=== PATIENT | female | born 1965 | race African-American/Black ===

== ENCOUNTER 2017-01-20 16:09 | Emergency (ER) | payer MEDICARE, MEDICAID ==
[~2017-01-20] VITALS: Ht 160 cm; Wt 74.8 kg
[~2017-01-20 16:09] MED LIST: ALBUTEROL SULF8.5 GM INH; IBUPROFEN400 MG ORAL; IBUPROFEN600 MG ORAL; NITROFURANTOIN100 M2 ORAL; RANITIDINE HCL150 MG PO; TRAMADOL HCL50 MG ORAL; ZANTAC150 MG ORAL
--- NOTE | 2017-01-20 17:07 | Emergency Room Report ---
History of Present Illness General Chief Complaint: Abdominal Pain Source: Patient Present Illness HPI 51-year-old female presents emergency department complaining of 5/10 in severity lower abdominal pain described as "bloated and gassy". She describes constipation x3 days denies nausea, vomiting, fevers, chills vision states intermittent cramping migratory pain from the right lower abdomen across to the left and has minimal relief with passing gas. Patient states her last bowel movement was 2 days ago and was very painful afterwards and reports that she had to strain. Patient states she recently took a diuretic to help relieve abdominal bloating however she states this did not help. She denies tenderness at this time. She denies blood in the stool, history of hemorrhoids or black tarry stools. Pt reports hx of GERD, and states her acid reflux has been acting up lately as well reports burning epigastric sensation only at night. Denies CP, Palpitations, LOC, AMS, dizziness, Changes in Vision, Sensation, paresthesias, or a sudden severe headache. Allergies: Coded Allergies: SULFAMETHOXAZOLE (Verified Allergy, Mild, STOMACH ACHE, 05/31/12) TRIMETHOPRIM (Verified Allergy, Mild, STOMACH ACHE, 05/31/12) Patient History Past Medical History: see triage record Past Surgical History: none Pertinent Family History: none Last Menstrual Period: 01/01/17 Now: No Reviewed Nursing Documentation: PMH: Agreed, PSxH: Agreed Nursing Documentation-PMH Past Medical History: No History, Except For Hx Gastrointestinal Problems: Yes - GERD Review of Systems All Other Systems: negative except mentioned in HPI Physical Exam Vital Signs Date Time Temp Pulse Resp B/P Pulse Ox O2 Delivery O2 Flow Rate FiO2 01/20/17 16:33 98.1 77 14 111/73 100 Room Air Sp02 EP Interpretation: reviewed, normal General Appearance: no apparent distress, alert, GCS 15, non-toxic Head: normocephalic, atraumatic Eyes: bilateral eye PERRL, bilateral eye normal inspection ENT: hearing grossly normal, normal pharynx, no angioedema, normal voice Neck: full range of motion, supple/symm/no masses Respiratory: lungs clear, normal breath sounds, speaking full sentences Cardiovascular #1: regular rate, rhythm, no edema Gastrointestinal: normal bowel sounds, non tender, soft, no guarding, no rebound Rectal: deferred Musculoskeletal: back normal, gait/station normal, normal range of motion, non- tender Neurologic: alert, oriented x3, responsive, motor strength/tone normal, sensory intact, normal gait, speech normal Psychiatric: judgement/insight normal, memory normal, mood/affect normal Skin: normal color, no rash, warm/dry, well hydrated Medical Decision Making PA Attestation Dr. Bragg is my supervising Physician whom patient management has been discussed with. Diagnostic Impression: Primary Impression: GENERALIZED ABDOMINAL PAIN Additional Impressions: Difficult bowel movements Hx of gastroesophageal reflux (GERD) ER Course 51-year-old female presents emergency department complaining of 5/10 in severity lower abdominal pain described as "bloated and gassy". She describes constipation x3 days denies nausea, vomiting, fevers, chills vision states intermittent cramping migratory pain from the right lower abdomen across to the left and has minimal relief with passing gas. Patient states her last bowel movement was 2 days ago and was very painful afterwards and reports that she had to strain. Patient states she recently took a diuretic to help relieve abdominal bloating however she states this did not help. She denies tenderness at this time. She denies blood in the stool, history of hemorrhoids or black tarry stools Ddx considered but are not limited to constipation , SBO, ileus, acute appendicitis, diverticulitis Vital signs: are WNL, pt. is afebrile H&PE are most consistent with constipation, and increased flatulence, no appreciable RLQ tenderness to suspect acute appendicitis at this time, no PE signs of acute abdomen. ORDERS: - pt. declined KUB film. ED INTERVENTIONS: - d/w pt. will treat conservatively at home, to follow up with PMD, or to return with any worsening of her current symptoms or new symptoms such as vomiting, or change in character of her abdominal pain. DISCHARGE: At this time pt. is stable for d/c to home. Will provide printed patient care instructions, and any necessary prescriptions. Care plan and follow up instructions have been discussed with the patient prior to discharge. Last Vital Signs Date Time Temp Pulse Resp B/P Pulse Ox O2 Delivery O2 Flow Rate FiO2 01/20/17 16:33 98.1 77 14 111/73 100 Room Air Disposition: HOME, SELF-CARE Condition: Stable Scripts Ranitidine Hcl* (ZANTAC*) 150 Mg Tablet 150 MG ORAL DAILY for 30 Days, #30 TAB 0 Refills Prov: Solange Holloway 01/20/17 Lactulose (LACTULOSE*) 20 Gm/30 Ml Solution 20 ML ORAL BID for 3 Days, #120 ML 0 Refills Prov: Solange Holloway 01/20/17 Docusate Sodium* (COLACE*) 100 Mg Capsule 100 MG ORAL TWICE A DAY for 20 Days, #40 CAP Prov: Solange Holloway 01/20/17 Patient Instructions: Abdominal Pain, Adult, Constipation, Adult, [id number] Additional Instructions: Take medications as directed. Follow up with PCP in 3-5 days Return sooner to ED if new symptoms occur, or current symptoms become worse. Such as vomiting, migration of pain to only the right lower quadrant, or worsening of current symptoms. - Please note that this Emergency Department Report was dictated using [employer] analyst technology software, occasionally this can lead to erroneous entry secondary to interpretation by the dictation equipment. Solange Holloway January 20, 2017 17:07
[2017-01-20] MEDS ORDERED: LACTULOSE20 GM/301 ORAL (17:09)
[2017-01-20] MEDS ORDERED: ZANTAC150 MG ORAL (17:09)
[2017-01-20] MEDS ORDERED: COLACE100 MG ORAL (17:09)
[2017-01-20 17:20] VITALS: BP 108/70
== END 2017-01-20 17:20 | disposition home or self-care (01) ==
LOC: EMR 17:20
DX: R10.30 Lower abdominal pain, unspecified (principal); K59.00 Constipation, unspecified; K21.9 Gastro-esophageal reflux disease without esophagitis; Z88.2 Allergy status to sulfonamides
CPT/HCPCS: 99284

== ENCOUNTER 2017-02-23 09:41 | Emergency (ER) | payer MEDICARE, MEDICAID ==
[~2017-02-23] VITALS: Ht 160 cm; Wt 79.4 kg
[~2017-02-23 09:41] MED LIST changes: +COLACE100 MG ORAL; +LACTULOSE20 GM/301 ORAL
[2017-02-23 09:55] VITALS: BP 127/77
[2017-02-23] MEDS ORDERED: IBUPROFEN600 MG ORAL (11:09)
[2017-02-23] MEDS ORDERED: LACTULOSE20 GM/301 ORAL (11:09)
[2017-02-23] MEDS ORDERED: Ketorolac 60mg Inj IM ONE (11:15)
[2017-02-23 11:19] VITALS: BP 127/88
--- NOTE | 2017-02-24 06:43 | Emergency Room Report ---
History of Present Illness General Chief Complaint: General Complaint Source: Patient, Medical Record Present Illness HPI 51YOF walk-in patient with 2 days of generalized body aches, sore throat, cough. Didnt get the flu vaccine this year. Denies chest pain, SOB, sick contacts, urinary complaints. Also complaints of abdominal bloating, requesting lactulose Rx ("that I was given before"). Allergies: Coded Allergies: SULFAMETHOXAZOLE (Verified Allergy, Mild, STOMACH ACHE, 05/31/12) TRIMETHOPRIM (Verified Allergy, Mild, STOMACH ACHE, 05/31/12) Patient History Past Medical History: GERD, psych hx Past Surgical History: none Pertinent Family History: none Social History: Denies: alcohol use, drug use, smoking Last Menstrual Period: 02/21/17 Now: No : 4 Para: 4 Immunizations: UTD Reviewed Nursing Documentation: PMH: Agreed, PSxH: Agreed Nursing Documentation-PMH Past Medical History: No History, Except For Hx Gastrointestinal Problems: Yes - GERD Review of Systems All Other Systems: negative except mentioned in HPI Physical Exam Vital Signs Date Time Temp Pulse Resp B/P Pulse Ox O2 Delivery O2 Flow Rate FiO2 02/23/17 09:47 98.1 79 17 127/77 100 Room Air Sp02 EP Interpretation: reviewed, normal General Appearance: normal inspection, well appearing, no apparent distress, alert, GCS 15, non-toxic Head: normocephalic, atraumatic Eyes: bilateral eye EOMI, bilateral eye PERRL ENT: normal ENT inspection, hearing grossly normal, normal voice Neck: normal inspection, full range of motion, supple, no bony tend Respiratory: normal inspection, lungs clear, normal breath sounds, no respiratory distress, no retraction, no wheezing Cardiovascular #1: regular rate, rhythm, no edema Gastrointestinal: normal inspection, normal bowel sounds, non tender, soft, no guarding, no hernia Genitourinary: no CVA tenderness Musculoskeletal: normal inspection, back normal, normal range of motion, Lashon' s Sign negative Neurologic: normal inspection, alert, oriented x3, responsive, microbiology teacher III-XII nml as tested, motor strength/tone normal, speech normal Psychiatric: normal inspection, judgement/insight normal, mood/affect normal Skin: normal inspection, normal color, no rash Lymphatic: normal inspection Medical Decision Making Diagnostic Impression: Primary Impression: Bloating Additional Impression: Viral illness ER Course 51YOF with viral symptoms. VSS. Afebrile No obvious source of bacterial infection in oropharynx, ears, lungs, skin, abdomen on exam Well appearing Advised supportive treatment Rx for Lactulose given for bloating. Abd soft, NT/ND on serial exam. Passing stool. ++bowel signs. Low suspicion for acute surgical process PMD followup DC home Understands to return for worsening symptoms - Follow up with your primary care doctor in 2-3 days Last Vital Signs Date Time Temp Pulse Resp B/P Pulse Ox O2 Delivery O2 Flow Rate FiO2 02/23/17 11:19 80 16 127/88 98 Room Air 02/23/17 09:55 98.1 Status: improved Disposition: HOME, SELF-CARE Condition: Improved Scripts Lactulose (LACTULOSE*) 20 Gm/30 Ml Solution 20 ML ORAL BID for 3 Days, #120 ML 0 Refills Prov: JIMENA LANDON M.D. 02/23/17 Ibuprofen* (MOTRIN*) 600 Mg Tablet 600 MG ORAL Q8H Y for For Pain, #30 TAB Prov: JIMENA LANDON M.D. 02/23/17 Patient Instructions: Viral Respiratory Infection, [id number], Gastritis, Adult, [id number] JIMENA LANDON M.D. Feb 24, 2017 06:43
== END 2017-02-23 11:20 | disposition home or self-care (01) ==
LOC: EMR 10:36
DX: R14.0 Abdominal distension (gaseous) (principal); B34.9 Viral infection, unspecified; K21.9 Gastro-esophageal reflux disease without esophagitis; Z88.2 Allergy status to sulfonamides; Z88.1 Allergy status to other antibiotic agents
CPT/HCPCS: 96372; 99284

== ENCOUNTER → 2017-04-24 | Emergency (ER) | payer MEDICARE, MEDICAID ==
[~2017-04-24] VITALS: Ht 160 cm; Wt 79.4 kg
[~2017-04-24] MED LIST changes: +DiphenhydrAMINE 50mg/ml Inj IVP ONE; +KEFLEX500 MG ORAL; +Ketorolac 30mg Inj IV ONE; +Metoclopramide 10mg/2ml Inj IVP ONE
[2017-04-24 16:34] VITALS: BP 134/80
[2017-04-24 17:07] LABS: APPEARANCE,URINE SLIGHTLY CLOUDY; BASOPHILS % (AUTO) 1.8 % (0.0-2.0); EOSINOPHILS % (AUTO) 4.4 % (0.0-3.0); KETONES,URINE NEGATIVE (NEGATIVE); LEUKOCYTE ESTERASE ,URINE 1+ (NEGATIVE); LYMPHOCYTES % (AUTO) 38.2 % (20.0-45.0); MEAN CORPUSCULAR HEMOGLOBIN 32.1 PG (27.0-31.0); MEAN CORPUSCULAR HGB CONC 34.8 G/DL (32.0-36.0); MEAN CORPUSCULAR VOLUME 92 FL (80-99); MONOCYTES % (AUTO) 7.1 % (1.0-10.0); NEUTROPHILS % (AUTO) 48.5 % (45.0-75.0); NITRITE,URINE NEGATIVE (NEGATIVE); PH,URINE 5 (4.5-8.0); PLATELET COUNT 378 K/UL (150-450); PROTEIN,URINE NEGATIVE (NEGATIVE); RED BLOOD COUNT 4.01 M/UL (4.20-5.40); RED CELL DISTRIBUTION WIDTH 12.2 % (11.6-14.8); UROBILINOGEN,URINE NORMAL MG/DL (0.0-1.0); WHITE BLOOD COUNT 6.5 K/UL (4.8-10.8)
[2017-04-24 17:15] LABS: BACTERIA,URINE FEW /HPF; SQUAMOUS EPITHELIAL CELL,UR MODERATE /LPF (NONE/OCC); WBC,URINE 0-2 /HPF (0 - 2)
[2017-04-24 17:30] VITALS: BP 130/75
[2017-04-24 17:41] LABS: ALANINE AMINOTRANSFERASE 12 U/L (3-33); ALBUMIN/GLOBULIN RATIO 1.3 (1.0-2.7); ANION GAP 13 (5-15); ASPARTATE AMINO TRANSFERASE 22 U/L (5-40); CALCIUM 8.7 mg/dL (8.6-10.2); CARBON DIOXIDE 23 mEQ/L (20-30); CHLORIDE 102 mEQ/L (98-107); CREATININE 0.8 mg/dL (0.5-0.9); GLOMERULAR FILTRATION RATE > 60 mL/min (>60); HEMOLYSIS 192; LIPASE 20 U/L (< 60); POTASSIUM 4.9 mEQ/L (3.4-4.9); SODIUM 138 mEQ/L (135-145); TOTAL PROTEIN 7.4 g/dL (6.6-8.7)
[2017-04-24 18:04] VITALS: BP 130/75
--- NOTE | 2017-04-24 18:51 | Emergency Room Report ---
History of Present Illness General Chief Complaint: Pain Source: Patient Present Illness HPI 51-year-old female presents to ED for evaluation. States that for the last 10 days she's been complaining of breast pain. Notes pain to the bilateral breasts. 5/10, throbbing. Patient states she's had this pain in the past whenever she is on her period. Patient states she has had mammogram in the past which are unremarkable. Is scheduled for her next mammogram seen. Denies any fevers or chills. Patient is also complaining of a headache for approximately one week. Frontal, throbbing, 8/10, nonradiating. Denies photophobia, blurry vision, nausea or vomiting. Denies chest pain or shortness of breath fracture, fevers or chills. No aggravating relieving factors. Denies any other associated symptoms Allergies: Coded Allergies: SULFAMETHOXAZOLE (Verified Allergy, Mild, STOMACH ACHE, 05/31/12) TRIMETHOPRIM (Verified Allergy, Mild, STOMACH ACHE, 05/31/12) PROPOFOL (Verified Allergy, Unknown, 04/24/17) Patient History Past Medical History: GERD Past Surgical History: none Pertinent Family History: none Social History: Denies: alcohol use, drug use, smoking Last Menstrual Period: 04/02/17 Now: No : 5 Para: 4 Immunizations: UTD Reviewed Nursing Documentation: PMH: Agreed, PSxH: Agreed Nursing Documentation-PMH Hx Gastrointestinal Problems: Yes - GERD Review of Systems All Other Systems: negative except mentioned in HPI Physical Exam Vital Signs Date Time Temp Pulse Resp B/P Pulse Ox O2 Delivery O2 Flow Rate FiO2 04/24/17 16:21 98.2 75 22 134/80 98 Room Air Sp02 EP Interpretation: reviewed, normal General Appearance: no apparent distress, alert, GCS 15, non-toxic Head: normocephalic Eyes: bilateral eye PERRL, bilateral eye normal inspection ENT: normal ENT inspection Neck: full range of motion, supple, no meningismus, supple/symm/no masses Respiratory: chest non-tender, lungs clear, normal breath sounds, speaking full sentences, other - bilateral breast pain Cardiovascular #1: regular rate, rhythm, no edema Gastrointestinal: normal inspection Rectal: deferred Genitourinary: no CVA tenderness Musculoskeletal: back normal, gait/station normal, normal range of motion, non- tender Neurologic: alert, oriented x3, responsive, motor strength/tone normal, sensory intact, speech normal Psychiatric: normal inspection Skin: normal inspection Lymphatic: normal inspection Medical Decision Making Diagnostic Impression: Primary Impression: Breast pain Additional Impressions: Urinary tract infection Qualified Codes: N39.0 - Urinary tract infection, site not specified Headache Qualified Codes: R51 - Headache ER Course Hospital Course 51-year-old female presents to ED complaining of headaches. c/o breast pain Differential diagnoses include: tension headache, migraine, dehydration Clinical course Patient placed on stretcher. After initial history and physical I ordered labs , IV fluids, Reglan, Toradol and Benadryl. Labs reviewed- electrolytes okay, no leukocytosis, hemoglobin/hematocrit stable. UA + bacteria On exam patient has some tenderness to bilateral breasts. No signs of infection or cellulitis. No fluctuance. Likely fibrocystic changes. Recommend patient followup with PMD/TIP STRETCHER Upon reassessment patient states headache has improved. Patient feels better wishes to go home. Given the lack of fever, nuchal rigidity or neurological findings my suspicion for intracranial pathology is low patient be safely discharged to home. i. I feel this is a highly complex case requiring extensive working including EKG/Rhythm strip, Xray/CT/US, Blood/urine lab work, repeat exams while in ED, and administration of strong opiates/narcotics for pain control, admission to hospital or close patient follow up. Diagnosis - headache, UTI, breast pain stable and discharged to home with Rx Motrin, Keflex. f/up with PMD. return to ED if symptoms recur/worsen. Labs Test 04/24/17 16:50 White Blood Count 6.5 K/UL (4.8-10.8) Red Blood Count 4.01 M/UL (4.20-5.40) Hemoglobin 12.9 G/DL (12.0-16.0) Hematocrit 36.9 % (37.0-47.0) Mean Corpuscular Volume 92 FL (80-99) Mean Corpuscular Hemoglobin 32.1 PG (27.0-31.0) Mean Corpuscular Hemoglobin Concent 34.8 G/DL (32.0-36.0) Red Cell Distribution Width 12.2 % (11.6-14.8) Platelet Count 378 K/UL (150-450) Mean Platelet Volume 7.0 FL (6.5-10.1) Neutrophils (%) (Auto) 48.5 % (45.0-75.0) Lymphocytes (%) (Auto) 38.2 % (20.0-45.0) Monocytes (%) (Auto) 7.1 % (1.0-10.0) Eosinophils (%) (Auto) 4.4 % (0.0-3.0) Basophils (%) (Auto) 1.8 % (0.0-2.0) Urine Color Pale yellow Urine Appearance Slightly cloudy Urine pH 5 (4.5-8.0) Urine Specific [place] 1.025 (1.005-1.035) Urine Protein Negative (NEGATIVE) Urine Glucose (UA) Negative (NEGATIVE) Urine Ketones Negative (NEGATIVE) Urine Occult Blood 3+ (NEGATIVE) Urine Nitrite Negative (NEGATIVE) Urine Bilirubin Negative (NEGATIVE) Urine Urobilinogen Normal MG/DL (0.0-1.0) Urine Leukocyte Esterase 1+ (NEGATIVE) Urine RBC 2-4 /HPF (0 - 2) Urine WBC 0-2 /HPF (0 - 2) Urine Squamous Epithelial Cells Moderate /LPF (NONE/OCC) Urine Bacteria Few /HPF (NONE) Sodium Level 138 mEQ/L (135-145) Potassium Level 4.9 mEQ/L (3.4-4.9) Chloride Level 102 mEQ/L (98-107) Carbon Dioxide Level 23 mEQ/L (20-30) Anion Gap 13 (5-15) Blood Urea Nitrogen 9 mg/dL (7-23) Creatinine 0.8 mg/dL (0.5-0.9) Estimat Glomerular Filtration Rate > 60 mL/min (>60) Glucose Level 88 mg/dL (74-106) Calcium Level 8.7 mg/dL (8.6-10.2) Total Bilirubin 0.3 mg/dL (0.0-1.2) Aspartate Amino Transf (AST/SGOT) 22 U/L (5-40) Alanine Aminotransferase (ALT/SGPT) 12 U/L (3-33) Alkaline Phosphatase 57 U/L (35-104) Total Protein 7.4 g/dL (6.6-8.7) Albumin 4.3 g/dL (3.5-5.2) Globulin 3.1 g/dL Albumin/Globulin Ratio 1.3 (1.0-2.7) Lipase 20 U/L (< 60) Last Vital Signs Date Time Temp Pulse Resp B/P Pulse Ox O2 Delivery O2 Flow Rate FiO2 04/24/17 18:04 98.2 80 18 130/75 98 Room Air Status: improved Disposition: HOME, SELF-CARE Condition: Stable Scripts Ibuprofen* (MOTRIN*) 600 Mg Tablet 600 MG ORAL Q8H Y for For Pain, #30 TAB 0 Refills Prov: CRISTIAN REA M.D. 04/24/17 Cephalexin* (KEFLEX*) 500 Mg Capsule 500 MG ORAL Q6H, #28 CAP 0 Refills Prov: CRISTIAN REA M.D. 04/24/17 Referrals: NOT CHOSEN IPA/,REFERRING (PCP) Patient Instructions: Fibrocystic Breast Changes, [id number] CRISTIAN REA M.D. Apr 24, 2017 18:51
== END | disposition home or self-care (01) ==
LOC: EMR 16:59
DX: N64.4 Mastodynia (principal); N39.0 Urinary tract infection, site not specified; K21.9 Gastro-esophageal reflux disease without esophagitis; Z88.2 Allergy status to sulfonamides; Z88.1 Allergy status to other antibiotic agents; R51 Headache
CPT/HCPCS: 36415; 80053; 81003; 83690; 85025; 96374; 96375; 99284; J1200; J1885; J2765

== ENCOUNTER 2018-05-09 16:49 | Emergency (ER) | payer OTHER, MEDICARE, MEDICAID ==
[~2018-05-09] VITALS: Ht 160 cm; Wt 81.2 kg
[~2018-05-09 16:49] MED LIST changes: -DiphenhydrAMINE 50mg/ml Inj IVP ONE; -Ketorolac 30mg Inj IV ONE; -Metoclopramide 10mg/2ml Inj IVP ONE
[2018-05-09 17:00] VITALS: BP 140/87
[2018-05-09] MEDS ORDERED: Methocarbamol 500mg tab ORAL ONE (17:15)
[2018-05-09] MEDS ORDERED: Ketorolac 30mg Inj IM ONE (17:15)
--- NOTE | 2018-05-09 17:38 | Emergency Room Report ---
History of Present Illness General Chief Complaint: Pain Source: Patient Present Illness HPI 52-year-old female patient presents to ER complaining of upper and lower extremity pain status post fall one day ago. Reports that she was walking to her car yesterday after work when she slipped on a "grease stain" and fell onto her right side. Complaining of right knee pain, right hip pain, right shoulder pain. Reports she is right-hand dominant. Also complaining of right wrist pain. Denies foods. Denies hitting her head or loss consciousness. Reports was able to walk home and handle pain yesterday, states pain worsened this morning. States has not taken any other medication for relief of symptoms. Denies abdominal pain. Denies fever, chest pain, shortness breath. denies bowel or bladder incontinence. DEnies falling on back contrary to triage report. Allergies: Coded Allergies: SULFAMETHOXAZOLE (Verified Allergy, Mild, STOMACH ACHE, 05/31/12) TRIMETHOPRIM (Verified Allergy, Mild, STOMACH ACHE, 05/31/12) PROPOFOL (Verified Allergy, Unknown, 04/24/17) Patient History Past Medical History: see triage record Last Menstrual Period: unk Now: No Reviewed Nursing Documentation: PMH: Agreed; PSxH: Agreed Nursing Documentation-PMH Hx Gastrointestinal Problems: Yes - GERD Review of Systems All Other Systems: negative except mentioned in HPI Physical Exam Vital Signs Date Time Temp Pulse Resp B/P (MAP) Pulse Ox O2 Delivery O2 Flow Rate FiO2 05/09/18 16:57 98.0 83 18 140/87 97 Room Air 98.1 Sp02 EP Interpretation: reviewed, normal General Appearance: well appearing, no apparent distress, alert, GCS 15, non- toxic Head: normocephalic, atraumatic Eyes: bilateral eye normal inspection, bilateral eye PERRL ENT: hearing grossly normal, normal pharynx, no angioedema, normal voice, uvula midline, moist mucus membranes Neck: full range of motion Respiratory: lungs clear, normal breath sounds, no rhonchi, no respiratory distress, no accessory muscle use, no wheezing, speaking full sentences Cardiovascular #1: regular rate, rhythm, no edema Cardiovascular #2: 2+ radial (R), 2+ radial (L) Musculoskeletal: back normal - no spinous process tenderness or bony depression , digits/nails normal, gait/station normal, normal range of motion, non-tender, other - no snuffbox tenderness, neurovascularly intact, no laxity with varus or valgus stress on right knee, able make a fist, no deformity; no skin tenting, negative sulcus sign, tender - right distal anterior knee Neurologic: alert, oriented x3, responsive, motor strength/tone normal, SLR negative, sensory intact Psychiatric: mood/affect normal Skin: no rash Medical Decision Making PA Attestation Dr. Emery is my supervising Physician whom patient management has been discussed with. Diagnostic Impression: Primary Impression: Fall Additional Impressions: Contusion, hip Upper extremity injury ER Course Pt. presents to the ED c/o fall and pain in knee, hip, and right upper extremity. Ddx considered but are not limited to fracture, sprain, strain, contusion, dislocation. No erythema, no warmth to touch, no fever, nontoxic appearing, low suspicion for septic joint. No leg length discrepancy, legs held in internal/external rotation, patient able ambulate, low suspicion for dislocation. no bowel or bladder incontinence, no spinous process tenderness bony depression of the spine, does not require imaging of the spine at this time. Vital signs: are WNL, pt. is afebrile Ordered imaging and pain medication. ER COURSE Provided with pain medication. An X-ray of the right wrist shows no acute fracture per the preliminary reading. An X-ray of the right shoulder shows no acute fracture per the preliminary reading. An X-ray of the right knee shows no acute fracture per the preliminary reading. CT of the pelvis shows no acute fracture per the [facility] reading. Discuss results with the patient. Provided patient with copy of results. Instructed patient to followup with PCP and discuss results of report with patient, discuss need for further treatment and referral. TRISTAN wrap and was applied to right knee and sling was applied to the right arm and was checked afterwards by me showing good alignment and support with distal neurovascular functioning intact. Patient instructed on RICE method: rest, ice, compression, elevation. Patient instructed on rest, ice and heat. Patient instructed to be WBAT Workmen's Compensation paperwork completed. Instructed to return to modified work. Followup with primary care provider. Discuss referral to ortho/pain management/ PT as needed. Discuss further imaging with MRI/CT as needed. DISCHARGE: -Rx provided for Tylenol for pain symptoms. -Rx provided for Methocarbamol. SE drowsiness, do not drink, drive, or operate heavy machinery while using. -Rx provided for lidocaine patches At this time pt. is stable for d/c to home. Patient is resting comfortably, in no acute distress, nontoxic appearing, talking without difficulty. Will provide printed patient care instructions, and any necessary prescriptions. Patient instructed to follow with primary care provider in 3 - 5 days and to request further follow-up as needed. Care plan and follow up instructions have been discussed with the patient prior to discharge. Take medications as directed. Patient questions asked and answered. Patient reports understanding and agreement to treatment plan. ER precautions given, patient instructed to return to ER immediately for any new or worsening of symptoms. - Please note that this Emergency Department Report was dictated using [id number] tank crewman technology software, occasionally this can lead to erroneous entry secondary to interpretation by the dictation equipment. Other X-Ray Diagnostic Results Other X-Ray Diagnostic Results #1: X-Ray ordered: right knee # of Views/Limited Vs Complete: 3 View Indication: Pain EP Interpretation: Yes PA Xray: Interpretation reviewed, by supervising MD, and agrees with findings. Interpretation: no dislocation, no soft tissue swelling, no fractures Impression: No acute disease PA Scribe Text Kulwant Ivy PA-C Other X-Ray Diagnostic Results #2: X-Ray ordered: right wrist # of Views/Limited Vs Complete: 3 View Indication: Pain EP Interpretation: Yes PA Xray: Interpretation reviewed, by supervising MD, and agrees with findings. Interpretation: no dislocation, no soft tissue swelling, no fractures Impression: No acute disease PA Scribe Text Kulwant Ivy PA-C Other X-Ray Diagnostic Results #3: X-Ray ordered: right shoulder # of Views/Limited Vs Complete: 3 View Indication: Pain EP Interpretation: Yes PA Xray: Interpretation reviewed, by supervising MD, and agrees with findings. Interpretation: no dislocation, no soft tissue swelling, no fractures Impression: No acute disease PA Scribe Text Kulwant Ivy PA-C CT/MRI/US Diagnostic Results CT/MRI/US Diagnostic Results : Imaging Test Ordered: CT pelvis Impression No evidence for acute fracture or dislocation. A nonspecific mixed lytic and sclerotic lesion is seen in the left femoral neck/ head measuring approximately 1.5 cm. Follow-up per final report. Degenerative changes of the lower lumbar spine. Probable fibroids in the uterus. Last Vital Signs Date Time Temp Pulse Resp B/P (MAP) Pulse Ox O2 Delivery O2 Flow Rate FiO2 05/09/18 16:57 98.0 83 18 140/87 97 Room Air 98.1 Status: improved Disposition: HOME, SELF-CARE Condition: Stable Scripts Acetaminophen* (TYLENOL EXTRA STRENGTH*) 500 Mg Tablet 500 MG ORAL Q8H PRN for Prn Headache/Temp > 101, #30 TAB 0 Refills Prov: Giorgio Ivy 05/09/18 Methocarbamol* (ROBAXIN*) 500 Mg Tablet 500 MG PO TID, #21 TAB 0 Refills Prov: Giorgio Ivy 05/09/18 Lidocaine (Lidocaine) 1 Each Adh..patch 5 % TP DAILY for 7 Days, #7 PATCH Prov: Giorgio Ivy 05/09/18 Patient Instructions: Hip Pointer, Ivrm-[id number], Knee Pain, [id number], Shoulder Pain, [id number]-[id number], Wrist Pain, Fied-[id number] Additional Instructions: Patient instructed to follow up with primary care provider and discuss further referral to orthopedics. Patient instructed on RICE method: rest, ice, compression, elevation. Patient instructed to WBAT. Take medications as directed. Patient questions asked and answered. ER precautions given, patient instructed to return to ER immediately for any new or worsening of symptoms. Giorgio Ivy May 09, 2018 17:38
[2018-05-09] MEDS ORDERED: TYLENOL EXTRA500 MG ORAL (18:19)
[2018-05-09] MEDS ORDERED: LIDOCAINE700 M1 TP (18:19)
[2018-05-09] MEDS ORDERED: ROBAXIN500 MG PO (18:19)
[2018-05-09 18:36] VITALS: BP 137/83
--- NOTE | 2018-05-10 08:35 | Diagnostic Imaging Report ---
Indication: Right hip pain, status post fall one day prior Technique: Noncontrast spiral acquisitions obtained through the pelvis. Multiplanar reconstructions generated. Total dose length product 825.53 mGycm. CTDIvol(s) 27.35 mGy. Dose reduction achieved using automated exposure control Comparison: Reference made to 02/16/[address] scan. Findings: No acute fractures. No dislocations.. Joint spaces are preserved. Reticulated sclerotic lesion in the inferomedial left femoral head is unchanged from 2014. No significant soft tissue contusion demonstrated. There are degenerative changes of the lumbosacral junction and bilateral sacroiliac joints. The pelvic viscera are unremarkable Impression: No acute bony trauma Lesion within the inferomedial left femoral head, of uncertain etiology but unchanged since 2013 and presumed benign Degenerative changes of the lumbosacral junction and bilateral sacroiliac joints This agrees with the preliminary interpretation provided overnight by [facility]. The CT scanner at [facility] is accredited by the [employer] and the scans are performed using protocols designed to limit radiation exposure to as low as reasonably achievable to attain images of sufficient resolution adequate for diagnostic evaluation.
--- NOTE | 2018-05-10 08:37 | Diagnostic Imaging Report ---
Clinical Indication:Pain, status post fall one day ago Technique: 3 views of the right wrist Comparison: None Findings: No acute fractures. No dislocations. The joint spaces are preserved. Impression: Negative
--- NOTE | 2018-05-10 08:38 | Diagnostic Imaging Report ---
Indication: Shoulder pain, one day status post fall Technique: 3 views of the right shoulder Comparison: none Findings: No acute fractures. No dislocations. Joint spaces are preserved Impression: Negative
--- NOTE | 2018-05-10 08:39 | Diagnostic Imaging Report ---
Indication: Pain, one day status post fall Technique: 3 views of the right knee Comparison: None Findings: There is a superior pole patellar traction osteophyte. No acute fractures. No dislocations. No suprapatellar effusion. There are early degenerative proliferative changes of the medial joint compartment. Impression: Mild degenerative changes. No acute bony trauma
== END 2018-05-09 18:39 | disposition home or self-care (01) ==
LOC: EMR 17:42
DX: S70.01XA Contusion of right hip, initial encounter (principal); W01.0XXA Fall on same level from slipping, tripping and stumbling without subsequent striking against object, initial encounter; Y92.89 Other specified places as the place of occurrence of the external cause; K21.0 Gastro-esophageal reflux disease with esophagitis; M79.621 Pain in right upper arm; M25.561 Pain in right knee; M25.511 Pain in right shoulder; M25.531 Pain in right wrist; Z88.2 Allergy status to sulfonamides; Z88.4 Allergy status to anesthetic agent; Z88.1 Allergy status to other antibiotic agents
CPT/HCPCS: 72192; 73030; 73110; 73562; 96372; 99284; J1885

== ENCOUNTER 2019-03-04 00:19 | Emergency (ER) | payer MEDICARE, MEDICAID ==
[~2019-03-04] VITALS: Ht 160 cm; Wt 83.9 kg
[~2019-03-04 00:19] MED LIST changes: +LIDOCAINE700 M1 TP; +ROBAXIN500 MG PO; +TYLENOL EXTRA500 MG ORAL
[2019-03-04 00:25] VITALS: BP 140/85
--- NOTE | 2019-03-04 00:25 | NUR ---
ED Nurse Note: Pt ambulated to ED from home c/o 06/28 pain and numbness in both hands. Pt is A&Ox4, VSS. Denies chest pain
[2019-03-04] MEDS ORDERED: NEURONTIN100 MG ORAL (01:22)
--- NOTE | 2019-03-04 01:22 | Emergency Room Report ---
History of Present Illness General Chief Complaint: Pain Source: Patient Present Illness HPI This is a 53-year-old female who works as a [employer]. She presents with chief complaint of numbness and pins and needle sensation to her fingers bilaterally. Onset for last 3 days. No trauma. No fever chills but no nausea no vomiting. No history of diabetes. Pain is 5 out of 10. Allergies: Coded Allergies: SULFAMETHOXAZOLE (Verified Allergy, Mild, STOMACH ACHE, 05/31/12) TRIMETHOPRIM (Verified Allergy, Mild, STOMACH ACHE, 05/31/12) PROPOFOL (Verified Allergy, Unknown, 04/24/17) Patient History Past Medical History: see triage record, old chart reviewed Past Surgical History: none Pertinent Family History: none Social History: Denies: smoking Now: No Immunizations: other Reviewed Nursing Documentation: PMH: Agreed; PSxH: Agreed Nursing Documentation-PMH Past Medical History: No Stated History Hx Gastrointestinal Problems: Yes - GERD Review of Systems Eye: Denies: eye pain, blurred vision ENT: Denies: ear pain, nose congestion, throat swelling Respiratory: Denies: cough, shortness of breath Cardiovascular: Denies: chest pain, palpitations Gastrointestinal: Denies: abdominal pain, diarrhea, nausea, vomiting Musculoskeletal: Denies: back pain, joint pain Skin: Denies: rash Neurological: Denies: headache, numbness Endocrine: Denies: increased thirst, increased urine Hematologic/Lymphatic: Denies: easy bruising All Other Systems: negative except mentioned in HPI Physical Exam Vital Signs Date Time Temp Pulse Resp B/P (MAP) Pulse Ox O2 Delivery O2 Flow Rate FiO2 03/04/19 00:22 98.2 75 17 148/87 (107) 94 Room Air Vitals normal Sp02 EP Interpretation: reviewed, normal General Appearance: well appearing, no apparent distress, alert Head: normocephalic, atraumatic Eyes: bilateral eye PERRL, bilateral eye EOMI ENT: hearing grossly normal, normal pharynx Neck: full range of motion, supple, no meningismus Respiratory: chest non-tender, lungs clear, normal breath sounds Cardiovascular #1: regular rate, rhythm, no murmur Gastrointestinal: normal bowel sounds, non tender, no mass, no organomegaly, no bruit, non-distended Musculoskeletal: back normal, gait/station normal, normal range of motion Psychiatric: mood/affect normal Skin: warm/dry Medical Decision Making Diagnostic Impression: Primary Impression: Peripheral neuropathy Qualified Codes: G62.9 - Polyneuropathy, unspecified ER Course She presents with peripheral neuropathy. There is no evidence of diabetes. This affects all of her fingers so unlikely to be carpal tunnel syndrome. There is no evidence of any decreased sensation to indicate an autoimmune disease. We will treat symptomatically. No need for x-ray since there is no trauma. Will discharge home. Last Vital Signs Date Time Temp Pulse Resp B/P (MAP) Pulse Ox O2 Delivery O2 Flow Rate FiO2 03/04/19 00:25 98.5 90 20 140/85 95 Room Air Status: improved Disposition: HOME, SELF-CARE Condition: Stable Scripts Gabapentin* (NEURONTIN*) 100 Mg Capsule 100 MG ORAL THREE TIMES A DAY, #30 CAP 0 Refills Prov: Danny Bojorquez MD 03/04/19 Additional Instructions: Follow-up with your doctor in 7 days. Not better, you may need a referral to see neurologist. Return if symptoms worsen. Danny Bojorquez MD Mar 04, 2019 01:22
[2019-03-04 01:26] VITALS: BP 145/86
--- NOTE | 2019-03-04 01:27 | NUR ---
ER DISCHARGE NOTE: Patient is cleared to be discharged per ERMD, pt is aox4, on room air, with stable vital signs. pt was given dc and prescription instructions, pt was able to verbalize understanding, pt id band removed. pt is able to ambulate with steady gait. pt took all belongings.
== END 2019-03-04 01:16 | disposition home or self-care (01) ==
LOC: EMR 01:00
DX: G62.9 Polyneuropathy, unspecified (principal); Z88.2 Allergy status to sulfonamides; Z88.8 Allergy status to other drugs, medicaments and biological substances; K21.9 Gastro-esophageal reflux disease without esophagitis
CPT/HCPCS: 99282

== ENCOUNTER 2019-07-09 23:46 | Emergency (ER) | payer MEDICARE, MEDICAID ==
[~2019-07-09] VITALS: Ht 160 cm; Wt 86.2 kg
[~2019-07-09 23:46] MED LIST changes: +NEURONTIN100 MG ORAL
--- NOTE | 2019-07-09 23:52 | NUR ---
ED Nurse Note: Patient walked into ED c/o multiple bug bites around her body, denies any fevers or chills, no open wounds noted, no redness around the bites, just has black spots, all wounds non draining. patient is alert and oriented x4, ambualtory with a steady gait. will wait for further orders
[2019-07-10 00:02] VITALS: BP 126/86
[2019-07-10] MEDS ORDERED: HYDROCORTISONE28 G2 TP (00:18)
--- NOTE | 2019-07-10 00:19 | Emergency Room Report ---
History of Present Illness General Chief Complaint: Animal Bite Source: Patient Present Illness HPI Patient's 54-year-old female presented after increased mosquito bites. Patient had multiple areas of bites to her extremities primarily. She denies any fever. She reports having generalized itchiness. She denies any other current complaints. Patient states this been going on for several weeks. She denies any severe pain to any of these areas. Allergies: Coded Allergies: SULFAMETHOXAZOLE (Verified Allergy, Mild, STOMACH ACHE, 05/31/12) TRIMETHOPRIM (Verified Allergy, Mild, STOMACH ACHE, 05/31/12) PROPOFOL (Verified Allergy, Unknown, 04/24/17) Patient History Now: No Reviewed Nursing Documentation: PMH: Agreed; PSxH: Agreed Nursing Documentation-PMH Past Medical History: No Stated History Hx Gastrointestinal Problems: Yes - GERD Review of Systems All Other Systems: negative except mentioned in HPI Physical Exam Vital Signs Date Time Temp Pulse Resp B/P (MAP) Pulse Ox O2 Delivery O2 Flow Rate FiO2 07/09/19 23:48 98.2 80 19 126/86 (99) 96 Room Air Sp02 EP Interpretation: reviewed, normal General Appearance: normal inspection, well appearing, no apparent distress, alert, GCS 15, non-toxic Head: atraumatic ENT: normal ENT inspection, hearing grossly normal, normal voice Neck: normal inspection, full range of motion, supple, no bony tend Respiratory: normal inspection, lungs clear, normal breath sounds, no respiratory distress, no retraction, no wheezing Cardiovascular #1: regular rate, rhythm, no edema Gastrointestinal: normal inspection, normal bowel sounds, non tender, soft, no guarding, no hernia Genitourinary: no CVA tenderness Musculoskeletal: normal inspection, back normal, normal range of motion Neurologic: normal inspection, alert, oriented x3, responsive, speech normal Psychiatric: normal inspection, judgement/insight normal, mood/affect normal Skin: other - multiple slight excoriated bites without erythema Medical Decision Making Diagnostic Impression: Primary Impression: Mosquito bite ER Course Patient presented for skin bites. Differential diagnosis include was not limited to Mosquito bite, pediculosis, allergic reaction among others. Patient appears to have some evidence of mosquito bites to her extremities. She does not show any evidence of acute infection to these bites. Patient was given prescription for topical steroids for itching. She is advised to follow-up with primary care physician for recheck. Advised to return if worse. Last Vital Signs Date Time Temp Pulse Resp B/P (MAP) Pulse Ox O2 Delivery O2 Flow Rate FiO2 07/10/19 00:02 98.2 80 19 126/86 96 Room Air Status: improved Disposition: HOME, SELF-CARE Condition: Stable Scripts Hydrocortisone Acetate 1% Onit (HYDROCORTISONE 1% OINT) Y Oint 28 GM TP DAILY, #30 GM Prov: Earnest Woody MD 07/10/19 Patient Instructions: Insect Bite Earnest Woody MD Jul 10, 2019 00:19
[2019-07-10 00:25] VITALS: BP 122/82
--- NOTE | 2019-07-10 00:26 | NUR ---
ER DISCHARGE NOTE: Patient is cleared to be discharged per ERMD, pt is aox4, on room air, with stable vital signs. pt was given dc and prescription instructions, pt was able to verbalize understanding, pt id band removed without complications. pt is able to ambulate with steady gait. pt took all belongings.
== END 2019-07-10 00:25 | disposition home or self-care (01) ==
LOC: EMR 07-10 00:20
DX: S40.862A Insect bite (nonvenomous) of left upper arm, initial encounter (principal); S40.861A Insect bite (nonvenomous) of right upper arm, initial encounter; S80.862A Insect bite (nonvenomous), left lower leg, initial encounter; S80.861A Insect bite (nonvenomous), right lower leg, initial encounter; Z88.2 Allergy status to sulfonamides; Z88.1 Allergy status to other antibiotic agents; Z88.8 Allergy status to other drugs, medicaments and biological substances; K21.9 Gastro-esophageal reflux disease without esophagitis; W57.XXXA Bitten or stung by nonvenomous insect and other nonvenomous arthropods, initial encounter; Y92.9 Unspecified place or not applicable
CPT/HCPCS: 99282